=== PATIENT | female | born 1995 | race Caucasian/White ===

== ENCOUNTER 2021-04-30 15:08 | Emergency (ER) | payer OTHER, SELFPAY ==
[2021-04-30 15:21] VITALS: BP 134/83; PULSE 79; RESP 16; TEMP 36.3; O2SAT 100
--- NOTE | 2021-04-30 16:07 | ED.URI ---
HPI - URI/Sore Throat General Chief Complaint: Upper Respiratory Infection Stated Complaint: Congestion,Cough Time Seen by Provider: 04/30/21 15:55 Source: patient and RN notes reviewed Mode of arrival: ambulatory Limitations: no limitations History of Present Illness HPI Narrative: Patient presents today complaint of a 2-day history of nasal congestion, sore throat, cough. States sore throat has been improving. Denies fever or shortness of breath. Report sick exposure nephew who was tested for RSV and Covid and was negative. Has been taking DayQuil with relief. She is requesting a rapid Covid test. MD elicited complaint: cough and sore throat Related Data Home Medications Medication Instructions Recorded Confirmed No Home Medications 04/30/21 04/30/21 Allergies Allergy/AdvReac Type Severity Reaction Status Date / Time No Known Allergies Allergy Verified 04/30/21 15:29 Review of Systems Review of Systems: CONSTITUTIONAL: Denies body aches, fever, chills, or sweats. EYES: Denies visual changes, redness, or discharge. ENT: Denies rhinorrhea, or otalgia.+ Congestion, sore throat CARDIOVASCULAR: Denies chest pain, palpitations, or edema. RESPIRATORY: Denies dyspnea.+ Cough GASTROINTESTINAL: Denies abdominal pain, nausea, vomiting, or diarrhea. GENITOURINARY: Denies dysuria or hematuria. SKIN: Denies rash, itching, or wounds. MUSCULOSKELETAL: Denies back pain, joint pain, or myalgia. NEUROLOGIC: Denies headache, numbness, tingling, or weakness. PSYCH: Denies depression or anxiety. [facility] Family History Family History Other Family history of coronary artery disease Family history of lung cancer Social History Social History Smoking status: Never smoker Alcohol intake: current Comments At time of signature, I have reviewed and agree with nursing past medical, surgical, social and family history unless otherwise noted. Please see nursing chart for further information. There is no relevant family history pertinent to the presenting complaint Exam Narrative: GENERAL: Well-appearing, well-nourished, and in no acute distress. HEAD: Normocephalic, atraumatic. EYES: EOMI. No redness or drainage. Conjunctivae normal. ENT: Mucous membranes pink and moist. Nares clear. No rhinorrhea. TMs normal bilaterally. Throat normal. Uvula midline. NECK: Normal AROM. Supple. No lymphadenopathy. CHEST: No respiratory distress. Clear to auscultation. HEART: Regular rate and rhythm. No murmur appreciated. Normal peripheral pulses. EXTREMITIES: Normal range of motion. No edema. SKIN: Warm, dry, no rash. Capillary refill normal. Normal skin turgor. NEURO: No focal deficits. Alert and oriented x3. Gait steady. PSYCH: Normal affect. No signs of depression or anxiety. Course Vital Signs Vital signs: Vital Signs Temperature 97.3 F L 04/30/21 15:21 Pulse Rate 79 04/30/21 15:21 Respiratory Rate 16 04/30/21 15:21 Blood Pressure 134/83 04/30/21 15:21 Pulse Oximetry 100 04/30/21 15:21 Temperature 97.3 F L 04/30/21 15:21 Pulse Rate 79 04/30/21 15:21 Respiratory Rate 16 04/30/21 15:21 Blood Pressure 134/83 04/30/21 15:21 Pulse Oximetry 100 04/30/21 15:21 Reviewed. Pt has been instructed to follow up with her PCP regarding her elevated blood pressure today. MDM - URI/Sore Throat Differential Diagnosis Differential diagnosis: Likely upper respiratory infection, sinusitis, viral infection, bronchitis and other (COVID-19) Lab Data Attestation: I reviewed the patient's lab results. Lab results narrative: Rapid COVID-19 test negative Critical Care Time Critical Care Time Critical Care Time: No Discharge Plan Discharge Clinical Impression: Upper respiratory infection Qualifiers: URI type: unspecified URI Qualified Code(s): J06.9 - Acute upper respiratory infecti
== END 2021-04-30 16:55 | disposition home or self-care (01) ==
PROVIDERS: Emergency Provider Nurse Practitioner
DX: J06.9 Acute upper respiratory infection, unspecified (principal); Z20.822 Contact with and (suspected) exposure to COVID-19
CPT/HCPCS: 87426; 99213; C9803; G0463

== ENCOUNTER 2022-06-15 16:56 | Emergency (ER) | payer OTHER, SELFPAY ==
[2022-06-15 17:03] VITALS: BP 136/86; PULSE 95; RESP 20; TEMP 37.2; O2SAT 100
--- NOTE | 2022-06-15 17:10 | ED.URI ---
HPI - URI/Sore Throat General Chief Complaint: Upper Respiratory Infection Stated Complaint: Sore Throat Time Seen by Provider: 06/15/22 17:04 History of Present Illness HPI Narrative: 27-year-old female presented for complaint of sore throat for 3 days. She endorses mild postnasal drainage and cough. She denies shortness of breath, wheezing, nausea, vomiting, diarrhea, fevers or chills. She took 2 negative COVID test at home, negative flu and strep as well 2 days ago. She is taking [id number] Tylenol, ibuprofen and cough and cold medications without relief in symptoms. Voice is hoarse. Denies sick contacts. Related Data Allergies Allergy/AdvReac Type Severity Reaction Status Date / Time No Known Allergies Allergy Verified 06/15/22 17:13 Review of Systems Review of Systems: CONSTITUTIONAL: Denies body aches, fever, chills, or sweats. EYES: Denies visual changes, redness, or discharge. ENT: Denies sinus pressure, otalgia. CARDIOVASCULAR: Denies chest pain, palpitations, or edema. RESPIRATORY: Denies dyspnea. GASTROINTESTINAL: Denies abdominal pain, nausea, vomiting, or diarrhea. SKIN: Denies rash, or wounds. MUSCULOSKELETAL: Denies back pain, joint pain, or myalgia. NEUROLOGIC: Denies headache [facility] Family History Family History Other Family history of coronary artery disease Family history of lung cancer Social History Social History Smoking status: Never smoker Alcohol intake: current Exam Narrative: GENERAL: Ill-appearing, no acute distress. EYES: conjunctivae clear ENT: Mucous membranes moist. TM pearly watson with normal light reflex bilaterally; no tragal tenderness. Hoarse voice, oropharynx erythematous without lesions. Tonsils absent no drooling, no hoarseness, no trismus, uvula midline. No tripod positioning, hot potato voice, or soft palate swelling. NECK: Supple. No lymphadenopathy CHEST: Clear to auscultation, breath sounds equal. HEART: Regular rate and rhythm. No murmur heard. SKIN: Warm, dry, no rash. NEURO: Alert and oriented x3. Course Course Emergency Course: Patient is aware of diagnosis, understands and agrees to treatment plan. Anticipatory guidance given. Patient agrees to follow-up as directed and is aware of reasons to seek care at the emergency department. Portions of this record may have been created with voice recognition software Level of Care: Express Care Visit Vital Signs Vital signs: Vital Signs Temperature 98.9 F 06/15/22 17:03 Pulse Rate 95 06/15/22 17:03 Respiratory Rate 20 06/15/22 17:03 Blood Pressure 136/86 06/15/22 17:03 Pulse Oximetry 100 06/15/22 17:03 Oxygen Delivery Room Air 06/15/22 17:03 Temperature 98.9 F 06/15/22 17:03 Pulse Rate 95 06/15/22 17:03 Respiratory Rate 20 06/15/22 17:03 Blood Pressure 136/86 06/15/22 17:03 Pulse Oximetry 100 06/15/22 17:03 Oxygen Delivery Room Air 06/15/22 17:03 MDM - URI/Sore Throat MDM Narrative Medical decision making narrative: strep result reviewed with pt. Advise supportive treatments. Patient is appropriate for outpatient treatment and follow-up. Differential Diagnosis Differential diagnosis: Likely upper respiratory infection, viral infection and pharyngitis Lab Data Labs: Strep Screen Presumptive Negative *(Reference Range: Negative)* Discharge Plan Discharge Clinical Impression: Upper respiratory infection Qualifiers: URI type: unspecified URI Qualified Code(s): J06.9 - Acute upper respiratory infection, unspecified Patient Disposition: Home, Self-Care Condition: Stable Instructions: Antibiotic Form, Pharyngitis (ED) Additional Instructions: Rapid strep swab was negative today You will be notified in a few days if the culture comes back positive fo
== END 2022-06-15 17:30 | disposition home or self-care (01) ==
PROVIDERS: Emergency Provider Nurse Practitioner Family
DX: J06.9 Acute upper respiratory infection, unspecified (principal)
CPT/HCPCS: 87081; 87880; 99213; G0463

== ENCOUNTER 2025-04-21 10:36 | Outpatient (CLI) | payer OTHER, SELFPAY ==
[2025-04-21 11:31] VITALS: BP 117/77; PULSE 66
[2025-04-21 11:46] VITALS: BP 109/67; PULSE 63
[2025-04-21 11:48] VITALS: BP 118/77; PULSE 62
[2025-04-21 14:16] LABS: OBXCEM ROM Plus Negative (Negative)
== END 2025-04-21 11:55 | disposition home or self-care (01) ==
LOC: ANHOBOP 11:25 → ANHLDR 11:26
PROVIDERS: Visit Provider Obstetrics & Gynecology
DX: O42.90 Premature rupture of membranes, unspecified as to length of time between rupture and onset of labor, unspecified weeks of gestation (principal); Z3A.00 Weeks of gestation of pregnancy not specified
CPT/HCPCS: 59025; 84112; 99199

== ENCOUNTER 2025-04-24 19:10 | Inpatient (IN) | payer OTHER, SELFPAY ==
[2025-04-24 19:19] VITALS: TEMP 36.7
[2025-04-24 22:02] VITALS: BMI 36.6
--- NOTE | 2025-04-24 22:04 | LDADM ---
This patient, Deanna Hedrick, was admitted to Labor/Delivery/Recovery 105 on 04/24/25 at 19:10. Plans for labor, pain management and were discussed with patient. Patient/family oriented to hospital policies and general routines including ID bracelet, bed and alarms, visiting hours, pain management, procedures, bathroom and other care routines, personal items, smoking policy, room service/diet and guest tray routines, infant security routines, and visiting hours. Patient/Family are encouraged to report perceived risks to care and to ask questions if they do not understand what they are told or what they should do. See OBIX for further documentation.
[2025-04-24] MEDS: LACTATED RINGERS 1,000 ML 125 ML IV CONT (22:17)
[2025-04-24 22:20] LABS: Hematocrit 40.4 % (37.0-47.0); Hemoglobin 13.3 g/dL (12.0-15.0); Immature Granulocyte Percent A 0.5 % (0-0.5); Lymphocytes Absolute Auto 3.32 K/mm3 (0.9-3.2); Mean Corpuscular HGB Conc 32.9 g/dl (32-36); Mean Corpuscular Hemoglobin 28.1 pg (26-34); Mean Corpuscular Volume 85.4 fl (80-100); Nucleated Red Blood Cells Absolute Auto 0.000 K/mm3 (0.0-0.012); Nucleated Red Blood Cells Perc 0.0 % (0.0-0.2); Platelet Count Result 317 k/mm3 (150-375); Red Blood Count 4.73 M/mm3 (4.2-5.4); White Blood Count 12.0 K/mm3 (4.5-10.0)
[2025-04-24] MEDS: OXYTOCIN 30 UNITS/NS 500 ML 30 UNITS/500 ML BAG 6 UNITS IV CONT (22:28)
[2025-04-24 22:30] VITALS: TEMP 36.6
[2025-04-24 23:07] LABS: Syphilis IgG/IgM Antibody Non-Reactive (Nonreactive)
[2025-04-25] VITALS (182 sets, daily range): BP systolic 91–217; BP diastolic 32–179; PULSE 49–167; RESP 16–18; TEMP 36.2–36.9; O2SAT 79–100
[2025-04-25] MEDS: LACTATED RINGERS 1,000 ML 125 ML IV CONT (00:01)
--- NOTE | 2025-04-25 00:07 | WPDANESEPP ---
Anes - Eval Pre Procedure Procedure: labor epidural Date/Time: 04/25/25 00:07 Surgeon: [email or web address] Preop Diagnosis: pain during labor Pre Op Diagnosis: IOL Patient Data Age: 29 Gender: F Height: 1.75 m Weight: 112.3 kg Last Vital Signs Temp 36.6 C 04/24/25 22:30 Pulse Ox 100 04/25/25 00:06 O2 Del Method Room Air 04/24/25 22:02 Allergies Allergy/AdvReac Type Severity Reaction Status Date / Time No Known Allergies Allergy Verified 04/22/25 09:46 Home Medications ?Medication ?Instructions ?Recorded ?Confirmed ?Type omeprazole 40 mg capsule,delayed 40 mg PO DAILY 03/30/25 04/22/25 History release aspirin 81 mg tablet 81 mg PO DAILY 03/31/25 04/22/25 History docosahexaenoic acid 200 mg mg PO 03/31/25 04/22/25 History capsule ( DHA) Laboratory Tests 04/24/25 22:13 WBC 12.0 H K/mm3 (4.5-10.0) RBC 4.73 M/mm3 (4.2-5.4) Hgb 13.3 g/dL (12.0-15.0) Hct 40.4 % (37.0-47.0) MCV 85.4 fl (80-100) MCH 28.1 pg (26-34) MCHC 32.9 g/dl (32-36) RDW 12.8 % (11.5-14.5) Plt Count 317 k/mm3 (150-375) MPV 10.4 fl (7.4-10.4) Immature Gran % (Auto) 0.5 % (0-0.5) Neut % (Auto) 64.8 % (45.5-73.1) Lymph % (Auto) 27.8 % (18.3-44.2) Bay % (Auto) 5.9 % (2.6-8.5) Eos % (Auto) 0.7 % (0-4.4) Baso % (Auto) 0.3 % (0.2-1.2) Lymph # (Auto) 3.32 H K/mm3 (0.9-3.2) Bay # (Auto) 0.7 H K/mm3 (0.1-0.6) Eos # (Auto) 0.1 K/mm3 (0-0.3) Baso # (Auto) 0.0 K/mm3 (0.0-0.1) Abs Immat Gran (auto) 0.06 H K/mm3 (0.00-0.031) Absolute Neuts (auto) 7.8 H K/mm3 (1.3-6.7) Absolute Nucleated RBC 0.000 K/mm3 (0.0-0.012) Nucleated RBC % 0.0 % (0.0-0.2) Syphilis IgG/IgM Ab Non-reactive (Nonreactive) Blood Type Pending Antibody Screen Pending Patient hx anesthesia problems: none Family hx anesthesia problems: none Results Review: All pre-operative results and documents have been reviewed as part of the pre-operative evaluation. [facility] Past Medical History Medical History (Updated 04/25/25 @ 00:07 by Lexie Iglesias CRNA) Obesity (BMI 30-39.9) IUP (intrauterine ), incidental Anxiety Family History Family History Other Family history of coronary artery disease Family history of lung cancer Social History Social History Smoking status: Never smoker Second hand tobacco smoke exposure: No Alcohol intake: current Substance use: never Lack of Transportation: No Lack of Food: Never True Current Housing: I Have Housing Concerned About Future Housing: No Difficulty Paying Gas/Electric Bills: No Difficulty Paying for Meds: No Currently Unemployed: No Education: Bachelor's Degree Difficulty w/ Childcare or Family Care: No Spiritual care concerns: No Exam Day of Procedure 04/25/25 00:07
[2025-04-25] MEDS: FAMOTIDINE 20 MG/2 ML VIAL IV PUSH (00:44)
[2025-04-25] MEDS: ONDANSETRON INJ 4 MG/2 ML VIAL IV PUSH (00:48)
[2025-04-25] MEDS: PHENYLEPHRINE 1,000 MCG/10 ML SYRINGE 100 MCG IV PUSH (00:51)
--- NOTE | 2025-04-25 07:43 | PM.IMHP ---
H&P: HPI History of Present Illness Date/Time: 04/25/25 07:43 Chief Complaint: Contractions Narrative: 29 y/o G1 at 40 2/7 weeks, with EDC 04/23/25 by 8 weeks ultrasound not consistent with LMP. She is here with contractions. She was found to be in early labor. She has received oxytocin intravenously to augment labor, and is now comfortable with an epidural. GBS neg. Review of Systems Review of Systems: All systems reviewed & are unremarkable except as noted in HPI and below PMFSH Past Medical History Medical History Obesity (BMI 30-39.9) IUP (intrauterine ), incidental Anxiety Family History Family History Other Family history of coronary artery disease Family history of lung cancer Social History Social History Smoking status: Never smoker Second hand tobacco smoke exposure: No Alcohol intake: current Substance use: never Lack of Transportation: No Lack of Food: Never True Current Housing: I Have Housing Concerned About Future Housing: No Difficulty Paying Gas/Electric Bills: No Difficulty Paying for Meds: No Currently Unemployed: No Education: Bachelor's Degree Difficulty w/ Childcare or Family Care: No Spiritual care concerns: No Meds Home Medications and Allergies Home Medications ?Medication ?Instructions ?Recorded ?Confirmed ?Type omeprazole 40 mg capsule,delayed 40 mg PO DAILY 03/30/25 04/25/25 History release aspirin 81 mg tablet 81 mg PO DAILY 03/31/25 04/25/25 History docosahexaenoic acid 200 mg 200 mg PO DAILY 03/31/25 04/25/25 History capsule ( DHA) Allergies Allergy/AdvReac Type Severity Reaction Status Date / Time No Known Allergies Allergy Verified 04/25/25 04:53 Vital Signs Vital Signs - 24 hr 04/24/25 19:19 04/24/25 22:02 04/24/25 22:30 Temperature 98.1 F 97.8 F Pulse Rate Blood Pressure Pulse Oximetry Oxygen Delivery Room Air 04/25/25 00:01 04/25/25 00:06 04/25/25 00:08 Temperature Pulse Rate 72 Blood Pressure 148/72 H Pulse Oximetry 100 100 Oxygen Delivery 04/25/25 00:11 04/25/25 00:12 04/25/25 00:14 Temperature Pulse Rate 76 81 Blood Pressure 155/98 H 146/83 H Pulse Oximetry 100 Oxygen Delivery 04/25/25 00:16 04/25/25 00:18 04/25/25 00:21 Temperature Pulse Rate 80 68 84 Blood Pressure 154/99 H 147/85 H 131/60 Pulse Oximetry 100 100 Oxygen Delivery 04/25/25 00:23 04/25/25 00:26 04/25/25 00:28 Temperature Pulse Rate 83 76 76 Blood Pressure 139/56 L 134/47 L 128/64 Pulse Oximetry 100 Oxygen Delivery 04/25/25 00:31 04/25/25 00:33 04/25/25 00:35 Temperature Pulse Rate 86 85 77 Blood Pressure 131/81 120/65 118/56 L Pulse Oximetry 100 Oxygen Delivery 04/25/25 00:36 04/25/25 00:38 04/25/25 00:40 Temperature Pulse Rate 75 70 Blood Pressure 117/60 108/55 L Pulse Oximetry 100 Oxygen Delivery 04/25/25 00:41 04/25/25 00:43 04/25/25 00:46 Temperature Pulse Rate 72 61 Blood Pressure 113/65 107/44 L Pulse Oximetry 99 99 Oxygen Delivery 04/25/25 00:48 04/25/25 00:51 04/25/25 00:53 Temperature Pulse Rate 65 49 L 55 L Blood Pressure 99/51 L 140/57 L 114/66 Pulse Oximetry 98 Oxygen Delivery 04/25/25 00:55 04/25/25 00:56 04/25/25 00:58 Temperature Pulse Rate 56 L 66 Blood Pressure 112/66 109/63 Pulse Oximetry 100 Oxygen Delivery 04/25/25 01:00 04/25/25 01:01 04/25/25 01:06 Temperature 97.1 F L Pulse Rate 66 Blood Pressure 106/60 Pulse Oximetry 100 100 Oxygen Delivery 04/25/25 01:11 04/25/25 01:16 04/25/25 01:21 Temperature Pulse Rate 56 L Blood Pressure 119/60 Pulse Oximetry 100 98 96 Oxygen Delivery 04/25/25 01:26 04/25/25 01:31 04/25/25 01:36 Temperature Pulse Rate 62 Blood Pressure 115/55 L Pulse Oximetry 98 98 96 Oxygen Delivery 04/25/25 01:41 04/25/25 01:46 04/25/25 01:51 Temperature Pulse Rate 52 L Blood Pressure 116/51 L Pulse Oximetry 95 95 97 Oxygen Delivery 04/25/25 01:52 04/25/25 01:57 04/25/25 02:01 Temperature Pulse Rate 64 Blood Pressure Pulse Oximetry 98 96 Oxygen Delivery 04/25/25 02:02 04/25/25 02:07 04/25/25 02:12 Temperature Pulse Rate Blood Pressure Pulse Oximetry 96 97 95 Oxygen Delivery 04/25/25 02:16 04/25/25 02:17 04/25/25 02:22 Temperature Pulse Rate 58 L Blood Pressure 98/38 L Pulse Oximetry 97 95 Oxygen Delivery 04/25/25 02:27 04/25/25 02:29 04/25/25 02:32 Temperature Pulse Rate 64 Blood Pressure 108/51 L Pulse Oximetry 96 95 Oxygen Delivery 04/25/25 02:37 04/25/25 02:42 04/25/25 02:46 Temperature Pulse Rate 52 L Blood Pressure 103/52 L Pulse Oximetry 96 97 Oxygen Delivery 04/25/25 02:47 04/25/25 02:52 04/25/25 02:54 Temperature 97.7 F Pulse Rate Blood Pressure Pulse Oximetry 98 95 Oxygen Delivery 04/25/25 02:57 04/25/25 03:00 04/25/25 03:02 Temperature Pulse Rate 75 Blood Pressure 110/63 Pulse Oximetry 97 97 Oxygen Delivery 04/25/25 03:07 04/25/25 03:12 04/25/25 03:16 Temperature Pulse Rate 58 L Blood Pressure 119/61 Pulse Oximetry 96 98 Oxygen Delivery 04/25/25 03:17 04/25/25 03:22 04/25/25 03:27 Temperature Pulse Rate Blood Pressure Pulse Oximetry 98 97 97 Oxygen Delivery 04/25/25 03:31 04/25/25 03:32 04/25/25 03:37 Temperature Pulse Rate 62 Blood Pressure 121/61 Pulse Oximetry 95 97 Oxygen Delivery 04/25/25 03:42 04/25/25 03:46 04/25/25 03:47 Temperature Pulse Rate 57 L Blood Pressure 119/64 Pulse Oximetry 94 96 Oxygen Delivery 04/25/25 03:52 04/25/25 03:57 04/25/25 04:01 Temperature Pulse Rate 58 L Blood Pressure 117/53 L Pulse Oximetry 99 98 Oxygen Delivery 04/25/25 04:02 04/25/25 04:07 04/25/25 04:12 Temperature Pulse Rate Blood Pressure Pulse Oximetry 97 98 96 Oxygen Delivery 04/25/25 04:16 04/25/25 04:17 04/25/25 04:19 Temperature 97.6 F Pulse Rate 66 Blood Pressure 122/66 Pulse Oximetry 98 Oxygen Delivery 04/25/25 04:22 04/25/25 04:27 04/25/25 04:31 Temperature Pulse Rate 68 Blood Pressure 128/64 Pulse Oximetry 99 100 Oxygen Delivery 04/25/25 04:32 04/25/25 04:37 04/25/25 04:42 Temperature Pulse Rate Blood Pressure Pulse Oximetry 97 98 98 Oxygen Delivery 04/25/25 04:46 04/25/25 04:47 04/25/25 04:52 Temperature Pulse Rate 65 Blood Pressure 127/56 L Pulse Oximetry 97 98 Oxygen Delivery 04/25/25 04:57 04/25/25 05:02 04/25/25 05:07 Temperature Pulse Rate Blood Pressure Pulse Oximetry 97 99 98 Oxygen Delivery 04/25/25 05:12 04/25/25 05:16 04/25/25 05:17 Temperature Pulse Rate 71 Blood Pressure 91/32 L Pulse Oximetry 99 100 Oxygen Delivery 04/25/25 05:22 04/25/25 05:27 04/25/25 05:30 Temperature Pulse Rate 64 Blood Pressure 100/52 L Pulse Oximetry 99 99 Oxygen Delivery 04/25/25 05:32 04/25/25 05:37 04/25/25 05:37 Temperature Pulse Rate Blood Pressure Pulse Oximetry 99 99 99 Oxygen Delivery 04/25/25 05:39 04/25/25 05:44 04/25/25 05:49 Temperature 97.5 F L Pulse Rate Blood Pressure Pulse Oximetry 100 100 100 Oxygen Delivery 04/25/25 05:54 04/25/25 05:59 04/25/25 06:01 Temperature Pulse Rate 109 H Blood Pressure 152/98 H Pulse Oximetry 100 100 Oxygen Delivery 04/25/25 06:04 04/25/25 06:09 04/25/25 06:14 Temperature Pulse Rate Blood Pressure Pulse Oximetry 100 100 98 Oxygen Delivery 04/25/25 06:16 04/25/25 06:19 04/25/25 06:24 Temperature Pulse Rate 167 H Blood Pressure 105/53 L Pulse Oximetry 100 100 Oxygen Delivery 04/25/25 06:29 04/25/25 06:30 04/25/25 06:34 Temperature Pulse Rate 68 Blood Pressure 118/80 Pulse Oximetry 100 97 Oxygen Delivery 04/25/25 06:34 04/25/25 06:39 04/25/25 06:44 Temperature Pulse Rate Blood Pressure Pulse Oximetry 100 98 100 Oxygen Delivery 04/25/25 06:46 04/25/25 06:47 04/25/25 06:52 Temperature Pulse Rate 93 Blood Pressure 138/77 Pulse Oximetry 100 98 98 Oxygen Delivery 04/25/25 06:56 04/25/25 06:57 04/25/25 07:01 Temperature 97.9 F Pulse Rate 73 Blood Pressure 121/71 Pulse Oximetry 99 Oxygen Delivery 04/25/25 07:02 04/25/25 07:07 04/25/25 07:12 Temperature Pulse Rate Blood Pressure Pulse Oximetry 99 99 97 Oxygen Delivery 04/25/25 07:16 04/25/25 07:17 04/25/25 07:22 Temperature Pulse Rate 83 Blood Pressure 100/79 Pulse Oximetry 100 97 Oxygen Delivery 04/25/25 07:27 04/25/25 07:32 04/25/25 07:37 Temperature Pulse Rate Blood Pressure Pulse Oximetry 97 100 100 Oxygen Delivery 04/25/25 07:42 Temperature Pulse Rate Blood Pressure Pulse Oximetry 100 Oxygen Delivery Exam Const: Orientation/consciousness: patient oriented x3 Other: Well-developed, well-nourished female in no acute distress. Neck: Thyroid: thyroid normal Lymphatic: no lymphadenopathy noted (in neck, axilla or inguinal nodes) Resp: Effort & Inspection: normal respiratory effort Auscultation: clear to auscultation bilaterally Cardio: Rate: regular rate Rhythm: regular rhythm Heart sounds: S1 normal heart sound present and S2 normal heart sound present GI: Other: ABD: Soft, nontender, nondistended, gravid. NST reactive. TOCO: contractions every 3-5 min. No guarding or rebound tenderness. No hepatosplenomegaly. : General: Yes no CVA tenderness Other: Cervix complete / +2. Vertex. Back/Spine/Pelvis: Back: no CVA tenderness Skin: General skin exam: normal color and no rashes or lesions noted Neuro: General: patient oriented x3 Extrem: Other: Extremities: nontender with no edema Psych: Mental Status: mental status grossly normal Affect: normal affect H&P: Results Labs Labs: Short CBC 04/24/25 Range/Units 22:13 WBC 12.0 H (4.5-10.0) K/mm3 Hgb 13.3 (12.0-15.0) g/dL Hct 40.4 (37.0-47.0) % Plt Count 317 (150-375) k/mm3 Assessment and Plan Assessment and plan (1) : Qualifiers: Weeks of gestation: 40 weeks Qualified Code(s): Z3A.40 - 40 weeks gestation of Code(s): Z34.90 - Encounter for supervision of normal , unspecified, unspecified trimester Status: Acute Assessment and Plan: A: IUP at 40 2/7 weeks with labor. P: Pushing. Anticipate .
--- NOTE | 2025-04-25 08:36 | PM.OBPRVD ---
OB - Vaginal Delivery Note Procedure Delivery date: 04/25/25 Delivery augmentation: Pitocin Delivery monitor: External FHT and External Uterine Route of delivery: Laceration Description: Perineal - 2nd Degree Delivery repair: vicryl (3-0) Specimen: Yes (cord blood) Quantitative Blood Loss (ml): 140 Anesthesia type: Epidural Disposition: PACU Complications: None Narrative: 29 y/o G1 at 40 2/7 weeks gestation who presented to the hospital with contractions. Labor was diagnosed. She received an epidural for pain control. Labor was augmented with IV oxytocin. She had SROM with clear fluid. Her labor progressed and her cervix dilated completely. She pushed with good effort and delivered the 's head to the perineum, followed by the body. The nose and mouth were bulb suctioned. After a delay, the cord was clamped and cut. The was handed off the field. Cord blood was collected. The placenta delivered spontaneously and was grossly normal in appearance. The usual 3 vessel cord was noted. A second degree midline perineal laceration was sustained. This was reapproximated using 3 0 Vicryl in the usual layered fashion. Excellent hemostasis resulted as did excellent reapproximation of the normal anatomy. Needle and instrument counts were correct. The patient was taken to recovery room in stable condition. The infant went to the nursery in stable condition. I was present and scrubbed for the entire delivery. Baby Date of : 04/25/25 Time of : 08:13 Gestational Age by Date: 40 gender: Female Weight (pounds): 7 Weight (ounces): 3 presentation: vertex position: Left Occiput Anterior Placenta delivery description: Spontaneous and Normal Configuration Cord Vessel Description: 3 Vessels and Delayed Cord Clamping score one minute: 8 score five minutes: 9
[2025-04-25] MEDS: OXYTOCIN 30 UNITS/NS 500 ML 30 UNITS/500 ML BAG 125 UNITS IV CONT (08:45)
--- NOTE | 2025-04-25 08:45 | PM.OBDSVD ---
DS: Admitting Diagnosis Discharge Date 04/27/25 Admitting Diagnosis IUP at 40 2/7 weeks Labor DS: Discharge Diagnosis Discharge Diagnosis (1) (normal spontaneous vaginal delivery): Code(s): O80 - Encounter for full-term uncomplicated delivery Status: Acute OB - DS: Summary OB Procedures : None OB Procedures Intrapartum: Spontaneous Vag Delivery OB Procedures: : None Peripartum Data Laceration Description: Perineal - 2nd Degree Time Spent with Patient Time attestation: Total time spent providing and/or coordinating discharge services: DS: Data Data Completed and Pending Labs on day of discharge: Labs from last 24 hours 04/24/25 22:13 WBC 12.0 H RBC 4.73 Hgb 13.3 Hct 40.4 MCV 85.4 MCH 28.1 MCHC 32.9 RDW 12.8 Plt Count 317 MPV 10.4 Immature Gran % (Auto) 0.5 Neut % (Auto) 64.8 Lymph % (Auto) 27.8 [place] % (Auto) 5.9 Eos % (Auto) 0.7 Baso % (Auto) 0.3 Lymph # (Auto) 3.32 H [place] # (Auto) 0.7 H Eos # (Auto) 0.1 Baso # (Auto) 0.0 Abs Immat Gran (auto) 0.06 H Absolute Neuts (auto) 7.8 H Absolute Nucleated RBC 0.000 Nucleated RBC % 0.0 Syphilis IgG/IgM Ab Non-reactive Blood Type A Positive Antibody Screen Negative Discharge Plan Discharge Attending physician on discharge: Carlito Chandler Discharging Clinician: Carlito Chandler Patient Disposition: Home Activity: pelvic rest Diet: regular Discharge Instructions: Call or return if temperature above 100.4? F, increased abdominal pain, increased vaginal bleeding or any new problems. Patient Language: Kyrgyz Stand Alone Forms: General Discharge Information Follow-up/Referrals: Carlito Chandler MD [Physician] - 6 Weeks Discharge Medications: New ibuprofen 600 mg tablet 600 mg PO Q6H PRN (Reason: cramps) Qty: 30 0RF Continued omeprazole 40 mg capsule,delayed release(DR/EC) 40 mg PO DAILY DHA 200 mg capsule 200 mg PO DAILY Discontinued aspirin 81 mg tablet 81 mg PO DAILY Date of admission: 04/24/25 19:10 Primary Care Provider: UNKNOWN,DOCTOR Admitting Provider: Carlito Chandler Attending physician on admission: Carlito Chandler Condition: Stable
[2025-04-25] MEDS: IBUPROFEN 600 MG TABLET PO ×2 (10:27→18:35)
[2025-04-25] MEDS: PANTOPRAZOLE 40 MG TABLET PO ×2 (10:28→21:00)
[2025-04-25] MEDS: MULTIVIT/MIN/PREN/FOL AC/IRON TABLET 1 TAB PO (10:28)
[2025-04-25] MEDS: WITCH HAZEL 40 PADS 1 PAD TOPICAL (10:28)
[2025-04-25] MEDS: BENZOCAINE 20% AER SPR (*SP) 56 GM CAN 1 SPRAY TOPICAL (10:28)
--- NOTE | 2025-04-25 11:32 | OBPPTRN ---
Patient transferred to post room #287 via wheelchair. Support person present. Oriented to unit, room, information board, rooming in, admission packet and security measures. Patient verbalizes understanding.
[2025-04-25] MEDS: DOCUSATE SODIUM 100 MG CAPSULE PO (16:59)
[2025-04-25] MEDS: ACETAMINOPHEN 325 MG TABLET 650 MG PO ×2 (16:59→23:00)
[2025-04-26] MEDS: IBUPROFEN 600 MG TABLET PO ×3 (04:30→19:43)
[2025-04-26 05:49] LABS: Hematocrit 35.0 % (37.0-47.0); Hemoglobin 11.5 g/dL (12.0-15.0)
[2025-04-26] MEDS: PANTOPRAZOLE 40 MG TABLET PO ×2 (07:31→23:13)
[2025-04-26] MEDS: ACETAMINOPHEN 325 MG TABLET 650 MG PO ×3 (07:31→23:13)
[2025-04-26] MEDS: MULTIVIT/MIN/PREN/FOL AC/IRON TABLET 1 TAB PO (07:31)
[2025-04-26] MEDS: DOCUSATE SODIUM 100 MG CAPSULE PO ×2 (07:31→15:56)
--- NOTE | 2025-04-26 08:21 | WPDANLDPN2 ---
Anes-Prog Note L&D Date/Time: 04/26/25 08:21 Comfortable throughout: labor and delivery Neuraxial method: epidural Epidural/Spinal procedure site: clean & non-tender Neuro status: Neuro function grossly intact. Cardiovascular status: normal Respiratory status: normal Airway patency: baseline Mental status: baseline Post-Op hydration status: normal Vital Signs: Last Vital Signs Temp 36.6 C 04/25/25 23:00 Pulse 65 04/25/25 23:00 Resp 18 04/25/25 23:00 BP 109/56 L 04/25/25 23:00 Pulse Ox 100 04/25/25 23:00 O2 Del Method Room Air 04/25/25 18:35 Pain score (VAS): 2 I/O: Intake & Output 04/25/25 04/26/25 04/26/25 23:59 07:59 15:59 Intake Total 250 Balance 250 Post-procedural complaints: none Patient feedback: Patient satisfied with anesthetic care.
[2025-04-26 08:25] VITALS: BP 140/90; PULSE 67; RESP 18; TEMP 36.4; O2SAT 98
--- NOTE | 2025-04-26 11:17 | P.PNOB_ITS ---
OB - PN: Subj Subjective Date/time seen: 04/26/25 0815 Interval history: PP day 1 Doing well Breast feeding Pain well controlled Ambulating without difficulty Bleeding okay Patient comments: no complaints and pain well controlled baby status: doing well [place] feeding status: exclusively breast feeding OB - PN: Obj Data Labs 04/26/25 04:31 Labs: Laboratory Results - last 24 hr 04/26/25 04:31 Hgb 11.5 L Hct 35.0 L OB - PN A/P Assessment and Plan (1) (normal spontaneous vaginal delivery): Code(s): O80 - Encounter for full-term uncomplicated delivery Status: Acute Assessment and Plan: PPD 1 Doing well Continue breatfeeding Routine pp care. Plan Plan: routine care Time Spent With Patient Time: Total time spent is greater than 50% in coordination of care (as documented) at patient's floor/unit and/or counseling patient: Review of Systems 2 Constitutional: Constitutional: Denies chills and Denies fever(s) Respiratory: Respiratory: Denies dyspnea Gastrointestinal: Gastrointestinal: Reports GI cramping Genitourinary: Genitourinary: Denies abnormal vaginal bleeding, Denies dysuria and Denies pelvic pain Exam 2 Const: General: cooperative Orientation/consciousness: patient oriented x3 Resp: Effort & Inspection: normal respiratory effort and able to speak in complete sentences Auscultation: clear to auscultation bilaterally Cardio: Rate: regular rate Rhythm: regular rhythm GI: GI Palp: Yes Soft to palpation and No Tenderness to palpation present (GI) Other: Fundus at U : External Female Exam: normal external appearance, No erythema and No external swelling Extrem: General: no calf tenderness Right lower extremity: no edema Left lower extremity: no edema Psych: Appearance: grossly normal
--- NOTE | 2025-04-26 13:30 | PC.NURSE ---
Introductions were made, then consulted with patient to assess needs related to . Discussed with mother her plans to feed her and the experience so far. She feels like baby is latching a little shallow but overall feedings are going well. Patient states that she will call out for a latch check at the next feeding. Resources provided for inpatient and outpatient services with the feeding sheet, mom/baby guide and name written on the communication board. Mother voiced understanding of information and will call if there is a request for assistance. Reported to the Primary RN.?
--- NOTE | 2025-04-26 16:15 | PC.NURSE ---
Observed mother with latched to the [left] breast in [cradle] position. Infant [was] able to maintain an appropriate latch. Mother [declines] nipple pain/discomfort [throughout feeding]. Mom was shown how to check for a rolled in lip, wide mouth, and proper alignment. Encouraged mother to keep awake and nursing at the breast for as long as baby desires. Mother taught to listen for swallowing during feedings. Reviewed using the blue feeding sheet to record time and duration of feeding. Mother voiced understanding of the education shared, to call for assistance if the infant does not latch or if there is discomfort with . name/number on communication board. Reported to the Primary RN.?
[2025-04-26 19:35] VITALS: BP 126/79; PULSE 71; RESP 16; TEMP 37; O2SAT 99
[2025-04-26 23:05] VITALS: BP 111/69; PULSE 55; RESP 16; TEMP 36.4; O2SAT 98
[2025-04-27 08:05] VITALS: BP 122/75; PULSE 57; RESP 20; TEMP 36.4; O2SAT 99
--- NOTE | 2025-04-27 08:46 | P.PNOB_ITS ---
OB - PN: Subj Subjective Date/time seen: 04/27/25 08:46 Interval history: PP day 1 Doing well Breast feeding Pain well controlled Ambulating without difficulty Bleeding okay Narrative: Pain OK. Would like to go home. OB - PN: Obj Data Labs 04/26/25 04:31 OB - PN A/P Plan day: 2 Comments: A: PPD#2, doing well. P: Home to f/u 6 weeks. Exam 2 Psych: Other: AVSS ABD soft, nontender, fundus firm EXT nontender
[2025-04-27] MEDS: DOCUSATE SODIUM 100 MG CAPSULE PO (09:03)
[2025-04-27] MEDS: ACETAMINOPHEN 325 MG TABLET 650 MG PO (09:03)
[2025-04-27] MEDS: MULTIVIT/MIN/PREN/FOL AC/IRON TABLET 1 TAB PO (09:04)
[2025-04-27] MEDS: PANTOPRAZOLE 40 MG TABLET PO (09:04)
--- NOTE | 2025-04-27 10:15 | PC.NURSE ---
Consulted with mother concerning needs and she shared her ability to independently latch infant optimally without pain. Mother is feeding appropriately for growth of and understands stimulating to eat if needed. Infant has had appropriate feedings in the last 24 hours meets the outcomes for weight, output, blood sugar and jaundice at this time. Reinforced understanding of milk production, transition of milk, signs of adequate intake, transition of stool, prevention/relief of engorgement, plugged ducts, mastitis, responsive watching for feeding cues, community resources, and when to call a provider using the resource of the feeding sheet along with the mom and baby guide. She has a [employer] breast pump at home. Mother voiced understanding of the information shared, is confident to continue effectively her infant at home, when to call for assistance, denies any additional assistance or education at this time. Reported to the Primary RN.
[2025-04-29 10:33] VITALS: BP 127/76; PULSE 75; RESP 18; TEMP 36.8; O2SAT 98
== END 2025-04-27 13:25 | disposition home or self-care (01) | DRG 807 ==
LOC: ANHLDR 04-25 08:47 → ANHOB2 04-25 11:32
PROVIDERS: Admitting Provider Obstetrics & Gynecology; Visit Provider Obstetrics & Gynecology
DX: O99.214 Obesity complicating childbirth (principal); Z37.0 Single live birth; O70.1 Second degree perineal laceration during delivery; Z3A.40 40 weeks gestation of pregnancy
CPT/HCPCS: 36415; 85014; 85018; 85025; 86593; 86850; 86900; 86901; A9270; J2371; J2405; J2590; J2795; J7120